=== PATIENT | female | born 1990 | race Caucasian/White ===

== ENCOUNTER 2022-01-12 22:04 | Emergency (ER) | payer MEDICAID ==
[2022-01-12] MEDS ORDERED: Take Home: Acetaminophen/HYDROcodone 325-5 MG, 5 Tab Pack PO ONE (22:28)
[2022-01-12] MEDS: Take Home: traMADol 50 MG, 4 Tab Pack PO ONE (22:51)
[2022-01-12 23:31] VITALS: BP 124/76; PULSE 68
== END 2022-01-12 22:55 | disposition home or self-care (01) ==
LOC: VM.ED 22:04
DX: T23.122A Burn of first degree of single left finger (nail) except thumb, initial encounter (principal); J45.909 Unspecified asthma, uncomplicated; Z79.899 Other long term (current) drug therapy; Z88.6 Allergy status to analgesic agent; Z88.5 Allergy status to narcotic agent; W86.8XXA Exposure to other electric current, initial encounter
CPT/HCPCS: 99283; A9270-GY